=== PATIENT | male | born 1960 | race Caucasian/White ===

== ENCOUNTER 2016-06-20 09:05 | Emergency (ER) | payer BC, OTHER ==
[2016-06-20 09:21] VITALS: BP 128/88; PULSE 80; TEMP 97.8; BMI 38.0
--- NOTE | 2016-06-20 09:22 | PDOC ---
History of Present Illness - General Chief Complaint: Respiratory Stated Complaint: FLU Time Seen by Provider: 06/20/16 09:16 History Source: Patient Exam Limitations: No Limitations - History of Present Illness Initial Comments: 56 yo M history paroxysmal afib presents with flu-like symptoms x5 day. He states that it started with frontal headache, fever with Tmax 102, body aches, nausea. He vomited this morning. Has had very little PO intake due to poor appetite x1 day. He states that he developed a rash on his back approximately 5 days ago. The rash is on the left side of his mid-back, no rash on the right side. He is uncertain if he received flu shot this year. He had chicken pox in the past. Past History - Past Medical History Allergies/Adverse Reactions: Allergies Allergy/AdvReac Type Severity Reaction Status Date / Time No Known Allergies Allergy Verified 06/20/16 09:14 Home Medications: Ambulatory Orders Valsartan 40 mg PO DAILY 11/15/14 Aspirin [ASA -] 81 mg PO DAILY tab.chew 11/23/14 Diltiazem Cd [Cardizem Cd -] 120 mg PO DAILY #30 cap.cd.24h 11/23/14 Ondansetron [Zofran -] 4 mg PO TID PRN #21 tablet 06/20/16 Anemia: No Asthma: Yes (CHILDHOOD) Cancer: No Cardiac Disorders: Yes (ONE EPISODE OF A-FIB NOVEMBER 2010) CVA: No COPD: No CHF: No Dementia: No Diabetes: No GI Disorders: No Disorders: No HTN: Yes Hypercholesterolemia: Yes Liver Disease: No Seizures: No Thyroid Disease: No - Surgical History Abdominal Surgery: No Appendectomy: No Cardiac Surgery: No Cholecystectomy: Yes (2008) Lung Surgery: No Neurologic Surgery: No Orthopedic Surgery: No - Psycho/Social/Smoking Cessation Hx Anxiety: No Suicidal Ideation: No Smoking History: Former smoker Have you smoked in the past 12 months: No Number of Cigarettes Smoked Daily: 0 Information on smoking cessation initiated: No 'Breaking Loose' booklet given: 11/15/14 Hx Alcohol Use: No Drug/Substance Use Hx: No Substance Use Type: None Hx Substance Use Treatment: No Review of Systems - Review of Systems Able to Perform ROS?: Yes Comments:: GENERAL/CONSTITUTIONAL: +Fever, chills, malaise, weakness. HEAD, EYES, EARS, NOSE AND THROAT: No change in vision. No ear pain or discharge. No sore throat. CARDIOVASCULAR: No chest pain or shortness of breath. RESPIRATORY: No cough, wheezing, or hemoptysis. GASTROINTESTINAL: +Nausea, vomiting. No diarrhea or constipation. GENITOURINARY: No dysuria, frequency, or change in urination. MUSCULOSKELETAL: No joint or muscle swelling or pain. No neck or back pain. SKIN: No rash NEUROLOGIC: +Headache. No vertigo, loss of consciousness, or change in strength/ sensation. ENDOCRINE: No increased thirst. No abnormal weight change. HEMATOLOGIC/LYMPHATIC: No anemia, easy bleeding, or history of blood clots. ALLERGIC/IMMUNOLOGIC: No hives or skin allergy. *Physical Exam - Vital Signs Last Vital Signs Temp Pulse Resp BP Pulse Ox 97.8 F 80 15 128/88 99 06/20/16 09:13 06/20/16 09:13 06/20/16 09:13 06/20/16 09:13 06/20/16 09:13 - Physical Exam Comments: GENERAL: Awake, alert, and fully oriented, in no acute distress. Appears ill but nontoxic. HEAD: No signs of trauma EYES: PERRLA, EOMI, sclera anicteric, conjunctiva clear ENT: Auricles normal inspection, hearing grossly normal, nares patent, oropharynx clear without exudates. Dry mucosa NECK: Normal ROM, supple, no lymphadenopathy, JVD, or masses LUNGS: Breath sounds equal, clear to auscultation bilaterally. No wheezes, and no crackles HEART: Regular rate and rhythm, normal S1 and S2, no murmurs, rubs or gallops ABDOMEN: Soft, nontender, normoactive bowel sounds. No guarding, no rebound. No masses EXTREMITIES: Normal range of motion, no edema. No clubbing or cyanosis. No cords, erythema, or tenderness NEUROLOGICAL: Cranial nerves II through XII grossly intact. Normal speech, normal gait SKIN: Warm, Dry, normal turgor. +Vesicular rash on an erythematous base to L mid -back in a dermatomal distribution. ED Treatment Course - LABORATORY CBC & Chemistry Diagram: 06/20/16 10:15 06/20/16 10:15 Medical Decision Making - Medical Decision Making Pt improved with IV fluids and IV tylenol. Rash is consistent with zoster, however, the duration of symptoms is such that it is too late to treat with antivirals at this point. Will treat symptomatically. Counseled him that women and unvaccinated children should not come into contact with the rash. Stable for DC home. *DC/Admit/Observation/Transfer Diagnosis at time of Disposition: Shingles Qualifiers: Herpes zoster complications: without complications Qualified Code(s): B02.9 - Zoster without complications - Discharge Dispostion Disposition: HOME Condition at time of disposition: Good Admit: No - Referrals Referrals: Yogesh Crespo MD [Primary Care Provider] - - Patient Instructions Printed Discharge Instructions: DI for Shingles
[2016-06-20] MEDS ORDERED: ONDANSETRON 4 MG/2 ML VIAL IVPUSH ONE (09:48)
[2016-06-20] MEDS ORDERED: SODIUM CHLORIDE 1,000 ML IV STA (09:48)
[2016-06-20] MEDS ORDERED: ACETAMINOPHEN 1000 MG/100 ML VIAL (NON FORMULARY) IVPB ONE (09:48)
[2016-06-20] MEDS ORDERED: ONDANSETRON 4 MG/2 ML VIAL ONE (09:55)
[2016-06-20] MEDS ORDERED: ACETAMINOPHEN INJECTION 100 ML IVPB ONE (09:56)
[2016-06-20 10:26] LABS: BASOPHIL 0.4 % (0-2.0); EOSINOPHIL 0.8 % (0-4.5); MCH 27.4 pg (25.7-33.7); MCHC 32.9 g/dl (32.0-35.9); MEAN CELL VOLUME 83.2 fl (80-96); MEAN PLT VOLUME 8.3 fl (7.5-11.1); NEUTROPHILS 72.5 % (42.8-82.8); PLATELET COUNT 276 K/MM3 (134-434); RDW 12.3 % (11.9-15.9); WHITE BLOOD COUNT 11.4 K/mm3 (4.0-10.0)
[2016-06-20 10:47] LABS: ALBUMIN 4.1 g/dl (3.5-5.0); ALK PHOS 93 U/L (32-92); ANION GAP 11 (8-16); BILIRUBIN,TOTAL 1.4 mg/dl (0.2-1.0); CALCIUM 9.2 mg/dl (8.4-10.2); CO2 20 mmol/L (22-28); CREATININE 0.7 mg/dl (0.6-1.3); SGOT/AST 32 U/L (10-42); SGPT/ALT 25 U/L (10-40); TOT PROT 7.3 g/dl (6.4-8.3)
[2016-06-20 10:49] LABS: PH,URINE 5.5 (4.5-8); URINE BILIRUBIN 1+ (NEGATIVE); URINE GLUCOSE (UA) 3+ (NEGATIVE); URINE KETONE 2+ (NEGATIVE); URINE LEUK ESTERASE Negative (NEGATIVE); URINE NITRITE Negative (NEGATIVE); URINE UROBILINOGEN 0.2 E.U/dl (0.2-1.0)
[2016-06-20 10:50] LABS: URINE COLOR YELLOW; URINE PROTEIN 1+ (NEGATIVE)
[2016-06-20 10:50] LABS: GLUCOSE,RANDOM 330 mg/dl (74-106)
[2016-06-20 10:51] LABS: URINE APPEARANCE CLOUDY; URINE BLOOD TRACE (NEGATIVE)
[2016-06-20 11:32] LABS: URINE RBC 0-3 /hpf (0-3); URINE WBC 0-3 (3-5)
[2016-06-20 11:33] LABS: URINE BACTERIA FEW /hpf (NEGATIVE)
== END 2016-06-20 13:25 | disposition home or self-care (01) ==
LOC: FER 09:05
PROC: 3E033NZ Introduction of Analgesics, Hypnotics, Sedatives into Peripheral Vein, Percutaneous Approach (ICD-10-PCS; principal; 2016-06-20)
PROC: 3E033GC Introduction of Other Therapeutic Substance into Peripheral Vein, Percutaneous Approach (ICD-10-PCS; 2016-06-20)
PROC: 3E0337Z Introduction of Electrolytic and Water Balance Substance into Peripheral Vein, Percutaneous Approach (ICD-10-PCS; 2016-06-20)
DX: B02.9 Zoster without complications (principal); Z87.891 Personal history of nicotine dependence; I48.91 Unspecified atrial fibrillation; Z79.82 Long term (current) use of aspirin; I10 Essential (primary) hypertension; E78.00 Pure hypercholesterolemia, unspecified
CPT/HCPCS: 36415; 71010-TC; 80053; 81003; 81015; 83605; 85025; 87804; 99284-25

== ENCOUNTER 2016-09-07 00:20 | Inpatient (IN) | payer BC, OTHER ==
[2016-09-07 00:31] VITALS: BMI 37.7
--- NOTE | 2016-09-07 00:31 | PDOC ---
History of Present Illness <Luana Garcia - Last Filed: 09/07/16 02:06> <Janae Ellis - Last Filed: 09/07/16 02:25> <Anshul Hwang - Last Filed: 09/07/16 02:32> - General Chief Complaint: Palpitations Stated Complaint: IRREGULAR HEART BEAT Time Seen by Provider: 09/07/16 00:28 - History of Present Illness Initial Comments: 09/07/16 00:56 Patient is a 56 year old male with significant medical hx of HTN, HLD, and paroxysmal AFIB who is presenting to the ED with palpitations since this evening. The patient was lying down on his side reading when he began experiencing heart palpitations. He denies any exertional activity. The patient has had an episode of AFib in the past (November 2010) and he states that this feels similar to that event. Denies chest pain, shortness of breath, nausea, vomiting, diarrhea, and melena. Cone Picker: Yogesh Crespo MD (Luana Garcia) Past History <Luana Garcia - Last Filed: 09/07/16 02:06> <Janae Ellis - Last Filed: 09/07/16 02:25> - Past Medical History Anemia: No Asthma: Yes (CHILDHOOD) Cancer: No Cardiac Disorders: Yes (ONE EPISODE OF A-FIB NOVEMBER 2010) CVA: No COPD: No CHF: No Dementia: No Diabetes: No GI Disorders: No Disorders: No HTN: Yes Hypercholesterolemia: Yes Liver Disease: No Seizures: No Thyroid Disease: No - Surgical History Abdominal Surgery: No Appendectomy: No Cardiac Surgery: No Cholecystectomy: Yes (2008) Lung Surgery: No Neurologic Surgery: No Orthopedic Surgery: No - Psycho/Social/Smoking Cessation Hx Anxiety: No Suicidal Ideation: No Smoking History: Former smoker Have you smoked in the past 12 months: No Number of Cigarettes Smoked Daily: 0 If you are a former smoker, when did you quit?: 3 months ago Information on smoking cessation initiated: No 'Breaking Loose' booklet given: 11/15/14 Hx Alcohol Use: No Drug/Substance Use Hx: No Substance Use Type: None Hx Substance Use Treatment: No <Anshul Hwang - Last Filed: 09/07/16 02:32> - Past Medical History Allergies/Adverse Reactions: Allergies Allergy/AdvReac Type Severity Reaction Status Date / Time No Known Allergies Allergy Verified 09/07/16 00:29 Home Medications: Ambulatory Orders Valsartan 40 mg PO DAILY 11/15/14 Diltiazem Cd [Cardizem Cd -] 120 mg PO DAILY #30 cap.cd.24h 11/23/14 Aspirin Coated [Ecotrin -] 325 mg PO DAILY 09/07/16 Cardiac Specific PMH - Complaint Specific PMHX Pacemaker: No <Anshul Hwang - Last Filed: 09/07/16 02:32> Review of Systems <Luana Garcia - Last Filed: 09/07/16 02:06> <Janae Ellis - Last Filed: 09/07/16 02:25> <Anshul Hwang - Last Filed: 09/07/16 02:32> - Review of Systems Comments:: 09/07/16 00:56 CONSTITUTIONAL: No fever, no chills, no fatigue EYES: No visual changes ENT: No ear pain, no sore throat CARDIOVASCULAR: Palpitations. No chest pain RESPIRATORY: No cough, no SOB GI: No abdominal pain, no nausea, no vomiting, no constipation, no diarrhea GENITOURINARY: No dysuria, no frequency, no hematuria MUSKULOSKELETAL: No backpain, no joint pain, no myalgias SKIN: No rash NEURO: No headache (Luana Garcia) *Physical Exam <Luana Garcia - Last Filed: 09/07/16 02:06> <Janae Ellis - Last Filed: 09/07/16 02:25> <Anshul Hwang - Last Filed: 09/07/16 02:32> - Vital Signs Last Vital Signs Temp Pulse Resp BP Pulse Ox 97.6 F 107 H 20 133/80 99 09/07/16 00:29 09/07/16 00:52 09/07/16 00:52 09/07/16 01:34 09/07/16 00:52 - Physical Exam Comments: 09/07/16 00:57 CONSTITUTIONAL: Morbidly obese; anxious appearing HEAD: Normocephalic; atraumatic EYES: PERRL; EOM intact ENMT: External appears normal; normal oropharynx NECK: Supple; non-tender; no cervical lymphadenopathy CARD: Irregularly irregular; Normal S1, S2; no murmurs, rubs, or gallops RESP: Normal chest excursion with respiration; breath sounds clear and equal bilaterally; no wheezes, rhonchi, or rales ABD: Soft, non-distended; non-tender; no palpable organomegaly, no palpable hernias EXT: Normal ROM in all four extremities; non-tender to palpation; distal pulses intact SKIN: Warm, dry, no rash NEURO: No focal neurological deficiencies. (Luana Garcia) Heart Score/ECG Review <Luana Garcia - Last Filed: 09/07/16 02:06> <Janae Ellis - Last Filed: 09/07/16 02:25> <Anshul Hwang - Last Filed: 09/07/16 02:32> #1 09/07/16 01:45 Atrial fibrillation with rapid ventricular response with premature ventricular or aberrantly conducted complexes Nonspecific ST abnormality Abnormal ECG (Luana Garcia) ED Treatment Course - LABORATORY CBC & Chemistry Diagram: 09/07/16 00:39 09/07/16 00:39 <Luana Garcia - Last Filed: 09/07/16 02:06> - LABORATORY CBC & Chemistry Diagram: 09/07/16 00:39 09/07/16 00:39 <Janae Ellis - Last Filed: 09/07/16 02:25> - LABORATORY CBC & Chemistry Diagram: 09/07/16 00:39 09/07/16 00:39 <Anshul Hwang - Last Filed: 09/07/16 02:32> - ADDITIONAL ORDERS Additional order review: Laboratory Results 09/07/16 09/07/16 00:39 00:39 INR 0.88 Sodium 135 L Potassium 3.8 Chloride 98 Carbon Dioxide 22 Anion Gap 15 BUN 17 D Creatinine 0.9 D Creat Clearance w eGFR > 60 Random Glucose 371 H* D Calcium 8.6 Total Bilirubin 0.3 AST 22 D ALT 34 Alkaline Phosphatase 211 H D Creatine Kinase 102 Troponin I < 0.02 Total Protein 7.0 Albumin 3.7 09/07/16 00:39 RBC 5.55 MCV 82.9 MCHC 34.6 RDW 13.3 MPV 9.0 Neutrophils % 50.1 D Lymphocytes % 41.4 H D Monocytes % 6.1 Eosinophils % 1.4 D Basophils % 1.0 D - RADIOLOGY Radiology Studies Ordered: Category Date Time Status CHEST X-RAY PORTABLE* [RAD] Stat Radiology 09/07/16 01:36 Taken - Medications Given in the ED: ED Medications Discontinued Medications Generic Name Dose Route Start Last Admin Trade Name Leeroy PRN Reason Stop Dose Admin Diltiazem HCl 30 mg 09/07/16 00:44 09/07/16 00:52 Cardizem Injection - IVPUSH 09/07/16 00:45 30 mg ONCE ONE Administration Diltiazem HCl 30 mg 09/07/16 01:25 09/07/16 01:35 Cardizem - PO 09/07/16 01:26 30 mg ONCE ONE Administration Diltiazem HCl 25 mg 09/07/16 01:25 09/07/16 01:35 Cardizem Injection - IVPUSH 09/07/16 01:26 25 mg ONCE ONE Administration Sodium Chloride 500 mls @ 500 mls/hr 09/07/16 01:26 09/07/16 01:34 Normal Saline - IV 09/07/16 02:25 500 mls/hr ASDIR STA Administration Insulin Human Regular 4 units 09/07/16 01:59 09/07/16 02:13 Novolin R Vial *For Ivpush Or Iv Drip Only* SQ 09/07/16 02:00 4 units ONCE ONE Administration Lorazepam 1 mg 09/07/16 00:44 09/07/16 00:52 Ativan - PO 09/07/16 00:45 1 mg ONCE ONE Administration Medical Decision Making <Luana Garcia - Last Filed: 09/07/16 02:06> <Janae Ellis - Last Filed: 09/07/16 02:25> <Anshul Hwang - Last Filed: 09/07/16 02:32> - Medical Decision Making 09/07/16 02:[address] Miles Meza covering for Dr. Yogesh Crespo (via answering service) at 2:01 Awaiting call back 09/07/16 02:26 Second call placed for Dr. Meza (via answering service) at 2:26 Awaiting call back (Janae Ellis) 09/07/16 02:12 Patient is morbidly obese 56-year-old male with history of hypertension, paroxysmal atrial fibrillation and anxiety who presents with history of ablation with rapid ventricular response. In the ER, patient is noted to be tachycardic with EKG revealing atrial fibrillation with a heart rate of 137 with nonspecific T-wave abnormalities likely related to the underlying rhythm. Patient denies chest pain or shortness of breath. On arrival, patient had received Cardizem-30 mg IV push over 2 minutes followed by additional Cardizem- 25 mg IV push and 30 mg of oral Cardizem patient had also received Ativan-1 mg by mouth for anxiety. On reassessment, blood pressure is noted to be 113/75; heart rate varies between 90 12/16/2010. Patient is otherwise asymptomatic. CBC is within normal limit. CMP reveals elevated blood sugar and minimally elevated anion gap. I will obtain an acetone level, although DKA is highly unlikely. We' ll administer 4 units of subcutaneous insolent. Will hydrate. We'll consider anticoagulation since patient's chads 2 vascular score is noted to be 2 will discuss with cardiology. Will admit. (Anshul Hwang) *DC/Admit/Observation/Transfer <Luana Garcia - Last Filed: 09/07/16 02:06> <Janae Ellis - Last Filed: 09/07/16 02:25> - Discharge Dispostion Admit: Yes <Anshul Hwang - Last Filed: 09/07/16 02:32> Diagnosis at time of Disposition: Atrial fibrillation with rapid ventricular response, Hyperglycemia - Discharge Dispostion Condition at time of disposition: Fair - Attestations Scribe Attestion: 09/07/16 00:58 Documentation prepared by Luana Garcia, acting as medical billing representative for Anshul Hwang MD. (Luana Garcia)
[2016-09-07] MEDS ORDERED: dilTIAZem HCL 125 MG/25 ML - 25 ML VIAL ONE ×4 (00:38→02:28)
[2016-09-07] MEDS ORDERED: LORazepam 1 MG TABLET PO ONE (00:44)
[2016-09-07] MEDS ORDERED: dilTIAZem HCL 50 MG/10 ML - 10 ML VIAL IVPUSH ONE ×3 (00:44→02:20)
[2016-09-07] MEDS ORDERED: LORazepam 0.5 MG TABLET ONE ×2 (00:46→00:49)
[2016-09-07 00:55] LABS: EOSINOPHIL 1.4 % (0-4.5); MCH 28.7 pg (25.7-33.7); MCHC 34.6 g/dl (32.0-35.9); MEAN CELL VOLUME 82.9 fl (80-96); NEUTROPHILS 50.1 % (42.8-82.8); PLATELET COUNT 243 K/MM3 (134-434); RDW 13.3 % (11.9-15.9); WHITE BLOOD COUNT 12.9 K/mm3 (4.0-10.0)
[2016-09-07 01:08] LABS: INR 0.88 (0.82-1.09); PROTHROMBIN TIME (PATIENT) 9.7 SEC (9.98-11.88)
[2016-09-07 01:18] LABS: ALBUMIN 3.7 g/dl (3.4-5.0); ANION GAP 15 (8-16); BILIRUBIN,TOTAL 0.3 mg/dL (0.2-1.0); CALCIUM 8.6 mg/dL (8.5-10.1); CO2 22 mmol/L (21-32); CREATININE 0.9 mg/dL (0.7-1.3); SGPT/ALT 34 U/L (12-78)
[2016-09-07 01:21] LABS: ALK PHOS 211 U/L (45-117); TROPONIN I < 0.02 ng/ml (0.00-0.05)
[2016-09-07 01:25] LABS: GLUCOSE,RANDOM 371 mg/dL (74-106); SGOT/AST 22 U/L (15-37)
[2016-09-07] MEDS ORDERED: dilTIAZem HCL 30 MG TABLET (FP) PO ONE (01:25)
[2016-09-07] MEDS ORDERED: SODIUM CHLORIDE 500 ML IV STA (01:26)
[2016-09-07] MEDS ORDERED: dilTIAZem HCL 30 MG TABLET (FP) ONE (01:27)
[2016-09-07] MEDS ORDERED: INSULIN REGULAR HUMAN 100 UNITS/ML *VIAL SQ ONE (01:59)
[2016-09-07] MEDS ORDERED: INSULIN NPH 100 UNITS/ML *VIAL ONE (02:10)
[2016-09-07] MEDS ORDERED: ENOXAPARIN NA (PORCINE) 40 MG/0.4 ML DISP.SYRIN SQ ONE (02:27)
[2016-09-07] MEDS ORDERED: ENOXAPARIN NA (PORCINE) 80 MG/0.8 ML DISP.SYRIN SQ ONE (02:28)
[2016-09-07] MEDS ORDERED: ENOXAPARIN NA (PORCINE) 120 MG/0.8 ML DISP.SYRIN SQ SCH (02:30)
--- NOTE | 2016-09-07 02:48 | PN ---
<Margoth Thornton - Last Filed: 09/07/16 02:47> Teaching Attending Note Name of Resident: Natalia Ridere <Dang Sutherland - Last Filed: 09/07/16 05:18> Teaching Attending Note ATTENDING PHYSICIAN STATEMENT I saw and evaluated the patient. I reviewed the resident's note and discussed the case with the resident. I agree with the resident's findings and plan as documented. SUBJECTIVE: 56 yo M presents with palpitations for 1 day. Patient states he was lying down at rest when the palpitations began. Patient reports experiencing AFIB 8 years prior and notes his symptoms tonight felt similar to his previous episode. Patient reports drinking decaffeinated coffee throughout this week as well as eating a piece of dark chocolate five minutes prior to the onset of AFIB. Patient states he typically works out 4-5 times a week. Denies N/V/D, dizziness and LOC. Patient reports his last Echo was in December,. PMHx: HTN, HLD, and paroxysmal AFIB OBJECTIVE: Last Vital Signs Temp Pulse Resp BP Pulse Ox 97.6 F 95 H 19 120/73 97 09/07/16 00:29 09/07/16 03:59 09/07/16 03:59 09/07/16 03:59 09/07/16 03:59 GENERAL: Morbidly obese. Awake, alert, and fully oriented, in no acute distress HEENT: Atraumatic. PERRLA, EOMI. Moist mucosa. No JVD LUNGS: No distress, speaks full sentences, clear to auscultation bilaterally HEART: Irregular rate and regular rhythm, normal S1 and S2, no murmurs, rubs or gallops, peripheral pulses normal and equal bilaterally. ABDOMEN: Soft, nontender, normoactive bowel sounds. No guarding, no rebound. No masses EXTREMITIES: Normal inspection, Normal range of motion, no edema. No clubbing or cyanosis. NEUROLOGICAL: Cranial nerves II through XII grossly intact. Normal speech, normal gait, no focal sensorimotor deficits SKIN: Warm, Dry, normal turgor, no rashes or lesions noted. CBCD WBC 12.9 K/mm3 (4.0-10.0) H D 09/07/16 00:39 RBC 5.55 M/mm3 (4.00-5.60) 09/07/16 00:39 Hgb 15.9 GM/dL (11.7-16.9) 09/07/16 00:39 Hct 46.0 % (35.4-49) 09/07/16 00:39 MCV 82.9 fl (80-96) 03 00:39 MCHC 34.6 g/dl (32.0-35.9) 09/07/16 00:39 RDW 13.3 % (11.9-15.9) 09/07/16 00:39 Plt Count 243 K/MM3 (134-434) 09/07/16 00:39 MPV 9.0 fl (7.5-11.1) 09/07/16 00:39 CMP Sodium 135 mmol/L (136-145) L 09/07/16 00:39 Potassium 3.8 mmol/L (3.5-5.1) 09/07/16 00:39 Chloride 98 mmol/L (98-107) 09/07/16 00:39 Carbon Dioxide 22 mmol/L (21-32) 09/07/16 00:39 Anion Gap 15 (8-16) 09/07/16 00:39 BUN 17 mg/dL (7-18) D 09/07/16 00:39 Creatinine 0.9 mg/dL (0.7-1.3) D 09/07/16 00:39 Creat Clearance w eGFR > 60 (>60) 09/07/16 00:39 Calcium 8.6 mg/dL (8.5-10.1) 09/07/16 00:39 Total Bilirubin 0.3 mg/dL (0.2-1.0) 09/07/16 00:39 AST 22 U/L (15-37) D 09/07/16 00:39 ALT 34 U/L (12-78) 09/07/16 00:39 Alkaline Phosphatase 211 U/L (45-117) H D 09/07/16 00:39 Total Protein 7.0 g/dl (6.4-8.2) 09/07/16 00:39 Albumin 3.7 g/dl (3.4-5.0) 03 00:39 ASSESSMENT AND PLAN: 1.) Paroxysmal AFIB - Chadvasc 2 - Anticoags as per cardio - Lovenox Q12 120 mg given in ED - 81 mg aspirin - Get lipid panel - Hemoglobin A!C - Echo in am - Cardiology consult in AM. Dr. Rodriguez - Follow up trope - Continue home meds, Cardizem 120 mg 2.)Hyperglycemia possible diabetes -insulin sliding scale -Fingersticks -Admit to tele Documentation prepared by Dang Sutherland, acting as medical transcription supervisor for Margoth Thornton M.D.
--- NOTE | 2016-09-07 03:00 | HP ---
CHIEF COMPLAINT: Palpitations PCP: No PCP Dr. Crespo ([facility]) HISTORY OF PRESENT ILLNESS: Patient is a 56 year old male presented with the chief complaints of palpitations. According to the patient, he was reading something after a heavy meal and a chocolate, when he started having palpitations at around 11:30pm yesterday evening. He felt his heart rate would slow down and would get faster. Patient started getting nervous, anxious and called 911 immediately. He had similar episode 8 years ago but after 30 hours, he returned to sinus. Since then he has been on Aspirin and Cardizem 120 [address] Patient saw Dr. Crespo last January, had detailed cardio workup done and everything was normal. Denies chest pain, sob, cough, headache, dizziness, loc, tingling, numbness, abdominal pain, nausea and vomiting. Patient mentions that he has had multiple shoulder surgery and the last one he had was in 2014, was told his HbA1c in 6.5. Since then he started exercising, eating healthy and came down from 335lbs--> 270lbs in over a year. But never had repeat HbA1c again and doesn't know if he has Diabetes Mellitus ER course was notable for: (1) Afebrile, HR-max 137 bpm, leukocytosis (12.9); RBS-371 (2) EKGs-Atrial fibrillation with rapid ventricular response with premature ventricular or aberrantly conducted complexes, Nonspecific ST abnormality (3) Cardizem 30mg IV push; Cardizem 25mg IV, cardizem 30mg PO; , Cardizem 25mg IV, Ativan 1mg, Enoxaparin 120mg sq, 4 Units Recent Travel: None PAST MEDICAL HISTORY: Paroxsysmal Atrial fibrillation( dx 8 yrs ago), Hypertension, Hyperlipidemia, s/p Cholecystectomy, Left knee replacement, Shoulder surgeries PAST SURGICAL HISTORY: As mentioned above Social History: Smoking: Quit 3months ago, used to smoke occasionally 3-4 times/week Alcohol: Occasional Drugs: Denies Family History: Unknown 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 Allergies No Known Allergies Allergy (Verified 09/07/16 00:29) HOME MEDICATIONS: Home Medications Medication Instructions Recorded Valsartan 40 mg PO DAILY 11/15/14 Diltiazem Cd [Cardizem Cd -] 120 mg PO DAILY #30 cap.cd.24h 11/23/14 Aspirin Coated [Ecotrin -] 325 mg PO DAILY 09/07/16 REVIEW OF SYSTEMS CONSTITUTIONAL: Absent: fever, chills, diaphoresis, generalized weakness, malaise, loss of appetite, weight change HEENT: Absent: rhinorrhea, nasal congestion, throat pain, throat swelling, difficulty swallowing, mouth swelling, ear pain, eye pain, visual changes CARDIOVASCULAR: Present: Palpitations Absent: chest pain, syncope, lightheadedness, peripheral edema RESPIRATORY: Absent: cough, shortness of breath, dyspnea with exertion, orthopnea, wheezing, stridor, hemoptysis GASTROINTESTINAL: Absent: abdominal pain, abdominal distension, nausea, vomiting, diarrhea, constipation, melena, hematochezia GENITOURINARY: Absent: dysuria, frequency, urgency, hesitancy, hematuria, flank pain, genital pain MUSCULOSKELETAL: Absent: myalgia, arthralgia, joint swelling, back pain, neck pain SKIN: Absent: rash, itching, pallor HEMATOLOGIC/IMMUNOLOGIC: Absent: easy bleeding, easy bruising, lymphadenopathy, frequent infections ENDOCRINE: Absent: unexplained weight gain, unexplained weight loss, heat intolerance, cold intolerance NEUROLOGIC: Absent: headache, focal weakness or paresthesias, dizziness, unsteady gait, seizure, mental status changes, bladder or bowel incontinence PSYCHIATRIC: Absent: anxiety, depression, suicidal or homicidal ideation, hallucinations. PHYSICAL EXAMINATION Vital Signs - 24 hr 09/07/16 09/07/16 09/07/16 00:29 00:52 01:34 Temperature 97.6 F Pulse Rate 122 H Pulse Rate [ 107 H Left Radial] Respiratory 20 20 Rate Blood Pressure 157/106 133/80 Blood Pressure 116/62 [Left Arm] O2 Sat by Pulse 99 99 Oximetry (%) 09/07/16 02:34 Temperature Pulse Rate Pulse Rate [ 117 H Left Radial] Respiratory 16 Rate Blood Pressure Blood Pressure 106/65 [Left Arm] O2 Sat by Pulse 100 Oximetry (%) GENERAL: Morbidly obese patient, Awake, alert, and fully oriented, in no acute distress. HEAD: Normal with no signs of trauma. EYES: EOM intact, no pallor or icterus. EARS, NOSE, THROAT: Ears normal. Moist mucous membranes. NECK:Supple LUNGS: Breath sounds equal, clear to auscultation bilaterally. No wheezes, and no crackles. No accessory muscle use. HEART: Irregularly irregular rhythm, normal S1 and S2 without murmur. ABDOMEN: Soft, nontender, not distended, normoactive bowel sounds, no guarding, no rebound, no masses. No hepatomegaly or splenomegaly. MUSCULOSKELETAL: Normal range of motion at all joints. No bony deformities or tenderness. No CVA tenderness. UPPER EXTREMITIES: 2+ pulses, warm, well-perfused. No cyanosis. No clubbing. No peripheral edema. LOWER EXTREMITIES: 2+ pulses, warm, well-perfused. No calf tenderness. No peripheral edema. NEUROLOGICAL: Cranial nerves II-XII intact. Normal speech. Normal gait. PSYCHIATRIC: Cooperative. Good eye contact. Appropriate mood and affect. SKIN: Warm, dry, normal turgor, no rashes or lesions noted, normal capillary refill. Laboratory Results - last 24 hr 09/07/16 09/07/16 09/07/16 00:39 00:39 00:39 WBC 12.9 H D RBC 5.55 Hgb 15.9 Hct 46.0 MCV 82.9 MCHC 34.6 RDW 13.3 Plt Count 243 MPV 9.0 Neutrophils % 50.1 D Lymphocytes % 41.4 H D Monocytes % 6.1 Eosinophils % 1.4 D Basophils % 1.0 D INR 0.88 Sodium 135 L Potassium 3.8 Chloride 98 Carbon Dioxide 22 Anion Gap 15 BUN 17 D Creatinine 0.9 D Creat Clearance w eGFR > 60 Random Glucose 371 H* D Calcium 8.6 Total Bilirubin 0.3 AST 22 D ALT 34 Alkaline Phosphatase 211 H D Creatine Kinase 102 Troponin I < 0.02 Total Protein 7.0 Albumin 3.7 TSH 09/07/16 00:52 WBC RBC Hgb Hct MCV MCHC RDW Plt Count MPV Neutrophils % Lymphocytes % Monocytes % Eosinophils % Basophils % INR Sodium Potassium Chloride Carbon Dioxide Anion Gap BUN Creatinine Creat Clearance w eGFR Random Glucose Calcium Total Bilirubin AST ALT Alkaline Phosphatase Creatine Kinase Troponin I Total Protein Albumin TSH 2.48 ASSESSMENT/PLAN: Patient is a 56 year old male with significant past medical history of Paroxsysmal Atrial fibrillation( dx 8 yrs ago), Hypertension, Hyperlipidemia, s/ p Cholecystectomy, Left knee replacement, Shoulder surgeries presented with the chief complaints of palpitations. # Paroxsysmal Atrial Fibrillation CHADVASC score-2 Patient presented with palpitations On arrival, he was afebrile, HR-max 137 bpm, leukocytosis (12.9); RBS-371 EKG showed-Atrial fibrillation with rapid ventricular response with premature ventricular or aberrantly conducted complexes, Nonspecific ST abnormality Patient received Cardizem 30mg IV push; Cardizem 25mg IV, cardizem 30mg PO; , Cardizem 25mg IV, Ativan 1mg, Enoxaparin 120mg sq, 4 Units Admitted in Telemetry Troponin x 1 negative------> pending at 6am Continuous cardiac monitoring Cardiology consult placed Resumed Dilitazem 120mg Daily from tomorrow since patient received 110mg of Diltiazem in the ED today.Anticoagulation as per Cardiology Continue 81mg Aspirin Daily Echo # Palpitations-rule out Pulmonary Embolism Wells score-1.5 If he develops palpitations and sob, consider doing a CTA # Hyperglycemia-Possible Diabetes ZgD4p-5.5 in 2014 RBS 371 Anion gap normal Received Insulin 4 units in the ED HbA1c Pending Finger stick glucose monitoring Insulin sliding scale # Leukocytosis (12.9) Could be stress induced. UA pending-r/o UTI # Hyperlipidemia Not on any medications Awaiting lipid profile report # Hypertension Continue Valsartan 40mg daily # FEN IV fluids NS @ 83 mls/hr Electrolytes to be repeated tomorrow Cholesterol controlled Diabetic diet # Prophylaxis For DVT- Patient received 120mg of Lovenox today, will await for his skilled nursing anticoagulation by primary therapist, patient ambulating now, on Scds. For GI- Not Indicated # Code Status- Full Code # Dispo: Admitted in Telemetry. Duration of stay unknown. Illness, Investigation and Plan of care explained to the patient. He verbalized understanding. Case to be discussed with Dr. Thornton. Visit type - Emergency Visit Emergency Visit: Yes ED Registration Date: 09/07/16 Care time: The patient presented to the Emergency Department on the above date and was hospitalized for further evaluation of their emergent condition. - New Patient This patient is new to me today: Yes Date on this admission: 09/07/16 - Critical Care Critical Care patient: No
[2016-09-07] MEDS ORDERED: SODIUM CHLORIDE 500 ML IV ONE (03:14)
[2016-09-07] MEDS ORDERED: SODIUM CHLORIDE 1,000 ML IV SCH ×2 (04:15→05:22)
[2016-09-07] MEDS: INSULIN SLIDING SCALE (NOVOLOG) 1 VIAL SQ SCH ×4 (06:42→21:31)
[2016-09-07 07:44] LABS: BASOPHIL 0.4 % (0-2.0); EOSINOPHIL 1.9 % (0-4.5); MCH 28.5 pg (25.7-33.7); MCHC 34.6 g/dl (32.0-35.9); MEAN CELL VOLUME 82.5 fl (80-96); MEAN PLT VOLUME 9.4 fl (7.5-11.1); PLATELET COUNT 218 K/MM3 (134-434); RDW 13.4 % (11.9-15.9); WHITE BLOOD COUNT 10.8 K/mm3 (4.0-10.0)
[2016-09-07 08:34] LABS: ALBUMIN 3.3 g/dl (3.4-5.0); ANION GAP 10 (8-16); BILIRUBIN,TOTAL 0.2 mg/dL (0.2-1.0); CALCIUM 8.3 mg/dL (8.5-10.1); CHOLESTEROL 225 mg/dL (50-200); CO2 24 mmol/L (21-32); CREATININE 0.7 mg/dL (0.7-1.3); GLUCOSE,RANDOM 284 mg/dL (74-106); LDL CHOLESTEROL (ONLY SJRH) 147 mg/dL (5-100); PHOSPHOROUS 3.6 mg/dL (2.5-4.9); SGOT/AST 14 U/L (15-37); SGPT/ALT 27 U/L (12-78); TOT PROT 6.4 g/dl (6.4-8.2)
[2016-09-07 08:35] LABS: ALK PHOS 154 U/L (45-117); TROPONIN I < 0.02 ng/ml (0.00-0.05)
--- NOTE | 2016-09-07 08:59 | PN ---
Progress Note (short form) - Note Progress Note: Consult Dictated HTN Probable new onset DM Non-obstructive CAD Mildly dilated ascending aorta Recurrent AF REC: Add Toprol Start Eliquis 5mg BID, d/c ASA Echo Tele If rates controlled, can be discharged with outpatient f/u. Good chance he will convert to NSR on own. If doesn't we have discussed DCCV- which can be done either prior to d/c or scheduled soon after discharge.
[2016-09-07] MEDS: VALSARTAN 40 MG TABLET (FP) PO SCH (09:34)
[2016-09-07] MEDS: METOPROLOL SUCCINATE 25 MG TAB.SR.24H (FP) PO SCH ×2 (09:34→21:27)
[2016-09-07] MEDS ORDERED: ASPIRIN COATED 81 MG TABLET.EC PO SCH (10:00)
[2016-09-07] MEDS ORDERED: ASPIRIN 325 MG ENTERIC COATED TABLET (FP) PO SCH (10:00)
--- NOTE | 2016-09-07 12:00 | CONS ---
CARDIOLOGY CONSULTATION DATE OF CONSULTATION: 09/07/2016 REQUESTING PHYSICIAN: Radha Chapman MD The patient is my office patient who presents with recurrent atrial fibrillation. His past medical history consists of chronic hypertension, probable new-onset diabetes, mildly dilated ascending aorta, history of atrial fibrillation in 2008 , nonobstructive coronary disease, who developed palpitations around midnight last night. The patient recognized these as similar to his previous atrial fibrillation episode, presented to the ER, and was found to be in rapid atrial fibrillation at 137 beats per minute. He was given IV Cardizem and slowed to the low 100s. On telemetry, his average rates have been in the 100s with a few episodes into the 120s. He denies chest pain, shortness of breath. Denies recent viral illnesses. Denies recent air travel. Denies symptoms of CHF. PAST MEDICAL HISTORY: As outlined above. ALLERGIES: He has no known drug allergies. HOME MEDICATIONS: Included valsartan 40 mg daily, Cardizem CD 120 daily, and aspirin 325 daily. FAMILY HISTORY: Noncontributory. 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 No illegal drug use. PHYSICAL EXAMINATION: Vital Signs: Temperature 98 Fahrenheit; pulse 95, irregular; blood pressure 133 /72; saturation 97 on room air. HEENT: Anicteric. Heart: S1, S2, irregular. Chest: Clear. Abdomen: Obese, soft, nontender. Extremities: No edema. Chest x-ray showed no acute lung disease. LABORATORY DATA: White count 10.8, hematocrit 43.7, platelets 218. INR 0.88. Sodium 137, potassium 3.8, creatinine 0.7. LFTs were normal with mildly elevated alkaline phosphatase. CK and troponin negative x2. Triglycerides 348, nonfasting; cholesterol 225; LDL 147. TSH was normal, 2.48. Toxicology screen showed trace acetone. EKG from September 07 at 2 a.m. showed atrial fibrillation at 103 beats per minute with no acute ST or T changes. IMPRESSION: 1. Hypertension. 2. Probably new-onset diabetes. 3. Nonobstructive coronary artery disease. 4. Mildly dilated ascending aorta. 5. Recurrent atrial fibrillation. PLAN: 1. Telemetry. 2. Echocardiogram. 3. Start Toprol-XL 25 mg b.i.d. 4. Start Eliquis 5 mg b.i.d., discontinue aspirin. 5. There is a good chance the patient will revert to normal sinus rhythm on his own with the addition of beta blockade. If he does not, as long as rates are controlled, it would be acceptable for him to be discharged with close outpatient followup. We have discussed the option of DC cardioversion if he does not revert to sinus rhythm - this can be done either prior to discharge or soon after discharge scheduled as an outpatient. He also inquired about the possibility of an atrial fibrillation ablation, but I would start with cardioversion first and reserve ablation for refractory or recurrent PAF. Thank you for the consultation. NOEL HDEZ M.D. [id number] MTDJacob
--- NOTE | 2016-09-07 13:01 | PN ---
Physical Exam: SUBJECTIVE: Patient seen and examined Pt is awake alert and oriented with no s/s of distress no chest pain, no palpitation, no sob, no dizziness no orthopnea, no dyspnea on exertion OBJECTIVE: Vital Signs Period Temp Pulse Resp BP Sys/Chapa Pulse Ox Last 24 Hr 97.6 F-98 F 95-117 16-20 106-133/65-73 97-100 GENERAL: The patient is awake, alert, and fully oriented, in no acute distress. HEAD: Normal with no signs of trauma. ENT: Ears normal, nares patent, oropharynx clear without exudates, moist mucous membranes. NECK: Trachea midline, full range of motion, supple. LUNGS: Breath sounds equal, clear to auscultation bilaterally, no wheezes, no crackles, no accessory muscle use. HEART: irregular rate and rhythm, S1, S2 without murmur, rub or gallop. ABDOMEN: Soft, obese, nontender, nondistended, normoactive bowel sounds, no guarding, no rebound, no hepatosplenomegaly, no masses. EXTREMITIES: 2+ pulses, warm, well-perfused, no edema. NEUROLOGICAL: normal speech, gait not observed. PSYCH: Normal mood, normal affect. SKIN: Warm, dry, normal turgor, no rashes or lesions noted Laboratory Results - last 24 hr 09/07/16 09/07/16 09/07/16 05:35 05:35 05:35 WBC 10.8 H RBC 5.30 Hgb 15.1 Hct 43.7 MCV 82.5 MCHC 34.6 RDW 13.4 Plt Count 218 MPV 9.4 Neutrophils % 51.0 Lymphocytes % 41.3 H Monocytes % 5.4 Eosinophils % 1.9 Basophils % 0.4 Sodium 137 Potassium 3.8 Chloride 103 Carbon Dioxide 24 Anion Gap 10 BUN 16 Creatinine 0.7 D Creat Clearance w eGFR > 60 POC Glucometer Random Glucose 284 H D Hemoglobin A1c % 10.2 H Calcium 8.3 L Phosphorus 3.6 Magnesium 2.0 Total Bilirubin 0.2 D AST 14 L D ALT 27 D Alkaline Phosphatase 154 H D Creatine Kinase 83 Troponin I < 0.02 Total Protein 6.4 Albumin 3.3 L Triglycerides 348 H Cholesterol 225 H Total LDL Cholesterol 147 H HDL Cholesterol 41 09/07/16 09/07/16 06:40 11:03 WBC RBC Hgb Hct MCV MCHC RDW Plt Count MPV Neutrophils % Lymphocytes % Monocytes % Eosinophils % Basophils % Sodium Potassium Chloride Carbon Dioxide Anion Gap BUN Creatinine Creat Clearance w eGFR POC Glucometer 235 229 Random Glucose Hemoglobin A1c % Calcium Phosphorus Magnesium Total Bilirubin AST ALT Alkaline Phosphatase Creatine Kinase Troponin I Total Protein Albumin Triglycerides Cholesterol Total LDL Cholesterol HDL Cholesterol Active Medications Generic Name Dose Route Start Last Admin Trade Name Fabriceq PRN Reason Stop Dose Admin Apixaban 5 mg 09/07/16 18:00 Eliquis - PO BID ANNE Diltiazem HCl 120 mg 09/08/16 10:00 Cardizem Cd - PO DAILY ANNE Sodium Chloride 1,000 mls @ 83 mls/hr 09/07/16 05:22 09/07/16 09:34 Normal Saline - IV 83 mls/hr ASDIR ANNE Administration Insulin Aspart 1 vial 09/07/16 07:00 09/07/16 11:04 Novolog Vial Sliding Scale - SQ Not Given ACHS ANNE Protocol Metoprolol Succinate 25 mg 09/07/16 10:00 09/07/16 09:34 Toprol Xl - PO 25 mg BID ANNE Administration Valsartan 40 mg 09/07/16 10:00 09/07/16 09:34 Diovan - PO 40 mg DAILY ANNE Administration CBC, BMP 09/07/16 05:35 09/07/16 05:35 ASSESSMENT/PLAN: 56 year old male with pmh f Proximal afib from 8 years, htn, hpld presents to the ED with complaint of Palpiation. Pt was found to be in AFIB with RVR AFib with RVR in ED HR was 130's only reduced after cardizem IV and PO This am HR 100's ans remained less than 130 throughout the night Pt denies any symptoms overnight CHADSVAC score 3 Will start antcoasgulation apixibn 5mg po bid For better rate control Start Toprol XL 25mg PO BID Continue Cardizem 120mg PO Stop aspirin Trend troponins F/u Echo Type 2 diabetes BS 371 on admission and 235 this am Hga1c is 10.2 Novolog sliding scale Will start metformin 500 mg PO BID on discharge MAy need to add a second PO agent Nutrition consult Diabetes education Class 2 obesity BMI 37.7 Weight loss counseling Exercise program NUtrition consult HPLD LDL 147 HDL 41 LDL: goal is 70 Start atorvastin 20mg Po qhs HTN BP controlled Continue diovan FEN Fluid:NS at 83 ml/h Electrolytes: NO abnormalities Nutrition: Diabetic diet DVT prophylaxis: on eliquis Disposition: keep in telemetry pending echocardiogram result and waiting for HR to be controlled. Visit type - Emergency Visit Emergency Visit: Yes ED Registration Date: 09/07/16 Care time: The patient presented to the Emergency Department on the above date and was hospitalized for further evaluation of their emergent condition. - New Patient This patient is new to me today: Yes Date on this admission: 09/07/16 - Critical Care Critical Care patient: No - Discharge Referral Referred to [facility] Med [facility].C.: No
--- NOTE | 2016-09-07 14:58 | PN ---
Teaching Attending Note Name of Resident: James Han ATTENDING PHYSICIAN STATEMENT I saw and evaluated the patient. I reviewed the resident's note and discussed the case with the resident. I agree with the resident's findings and plan as documented. SUBJECTIVE:no repeated episodes of palpitations since last night. states he had similar symptoms 8 years ago when he was told he had afib but self converted. had stress test and echo done 7 months ago and reported as negative per patient. denies CP, SOB,fever, chills, blurred vision,, N/V/C/D OBJECTIVE: Last Vital Signs Temp Pulse Resp BP Pulse Ox 97.6 F 106 H 18 118/69 97 09/07/16 09:32 09/07/16 09:32 09/07/16 09:32 09/07/16 09:32 09/07/16 05:44 General NAD CV S1 S2 irregular, tachycardic no murmur Lungs CTA B/L no wheezing/rales/rhonchi ASSESSMENT AND PLAN: 56yo M with PMH PAF, HTN and DM presented to the ER and was admitted for further evaluation of their emergent condition 1. Afib with RVR- multiple cardizem IVP unable to control HR. initation of metoprolol this morning to improve HR. re-started on home dose of cardizem. [id number] >2. initiated on eliquis. risk and benefits of anticoagulation discussed with patient in detail. echo pending. cardio on board. TSH WNL, no sign of infection 2. New onset DM- A1c 10.1. diabetic teaching. fingerstick teaching by RN. counseled on importance of glucose control and sequelae of uncontrolled DM. will start on metformin on discharge. repeat A1c in 3 months 3. Obesity- BMI 37.7. counseld on importance of weight loss. lifestyle changes and excercise. goal to loose 1 lb/week 4. DVT ppx- eliquis
[2016-09-07 15:20] LABS: TROPONIN I < 0.02 ng/ml (0.00-0.05)
--- NOTE | 2016-09-07 17:05 | EKG ---
Test Reason : Blood Pressure : / mmHG Vent. Rate : 103 BPM Atrial Rate : 092 BPM P-R Int : 000 ms QRS Dur : 088 ms QT Int : 320 ms P-R-T Axes : 000 018 027 degrees QTc Int : 419 ms ATRIAL FIBRILLATION WITH RAPID VENTRICULAR RESPONSE ABNORMAL ECG WHEN COMPARED WITH ECG OF 07-SEP-2016 00:26, NO SIGNIFICANT CHANGE WAS FOUND Confirmed by PADMINI SEVERINO MD ([id number]) on 09/07/2016 5:05:19 PM Referred By: Confirmed By:PADMINI SEVERINO MD
--- NOTE | 2016-09-07 17:05 | EKG ---
Test Reason : Blood Pressure : / mmHG Vent. Rate : 137 BPM Atrial Rate : 174 BPM P-R Int : 000 ms QRS Dur : 088 ms QT Int : 320 ms P-R-T Axes : 000 034 059 degrees QTc Int : 483 ms ATRIAL FIBRILLATION WITH RAPID VENTRICULAR RESPONSE WITH PREMATURE VENTRICULAR OR ABERRANTLY CONDUCTED COMPLEXES NONSPECIFIC ST ABNORMALITY ABNORMAL ECG WHEN COMPARED WITH ECG OF 21-NOV-2014 10:04, ATRIAL FIBRILLATION HAS REPLACED SINUS RHYTHM VENT. RATE HAS INCREASED BY 76 BPM NON-SPECIFIC CHANGE IN ST SEGMENT IN INFERIOR LEADS ST NOW DEPRESSED IN ANTERIOR LEADS T WAVE INVERSION NO LONGER EVIDENT IN INFERIOR LEADS Confirmed by PADMINI SEVERINO MD ([id number]) on 09/07/2016 5:05:35 PM Referred By: Confirmed By:PADMINI SEVERINO MD
--- NOTE | 2016-09-07 17:06 | EKG ---
Test Reason : Blood Pressure : / mmHG Vent. Rate : 103 BPM Atrial Rate : 097 BPM P-R Int : 000 ms QRS Dur : 090 ms QT Int : 358 ms P-R-T Axes : 000 008 022 degrees QTc Int : 468 ms ATRIAL FIBRILLATION WITH RAPID VENTRICULAR RESPONSE ABNORMAL ECG WHEN COMPARED WITH ECG OF 07-SEP-2016 02:47, QT HAS LENGTHENED Confirmed by PADMINI SEVERINO MD ([id number]) on 09/07/2016 5:06:44 PM Referred By: SALVADOR MILLIGAN Confirmed By:PADMINI SEVERINO MD
[2016-09-07] MEDS: APIXABAN 5 MG TABLET PO SCH (17:45)
--- NOTE | 2016-09-07 20:37 | HOSP ---
Subjective - Review of Symptoms Events since last encounter: 09/07/2016 8:20pm Was paged by the nurse to inform me that patient is refusing to keep his IV fluids running. Went to assess the patient. Patient states that he wants the IV fluids to be discontinued. Checked his labs. Patient doesn't have acute kidney injury (creatinine is normal ); blood sugar is trending down. Patient is on diabetic diet and he is drinking well. There is no indication of IV fluids at this time. Hence will discontinue the IV fluids for tonight. If needed, it can be resumed tomorrow. Physical Examination Vital Signs: Vital Signs Temperature 98.8 F 09/07/16 17:00 Pulse Rate 100 H 09/07/16 17:00 Respiratory Rate 18 09/07/16 17:00 Blood Pressure 108/60 09/07/16 17:00 O2 Sat by Pulse Oximetry (%) 97 09/07/16 09:00 Labs: CBC, BMP 09/07/16 05:35 09/07/16 05:35 Visit type - Emergency Visit Emergency Visit: Yes ED Registration Date: 09/07/16 Care time: The patient presented to the Emergency Department on the above date and was hospitalized for further evaluation of their emergent condition. - New Patient This patient is new to me today: No - Critical Care Critical Care patient: No
[2016-09-07] MEDS ORDERED: ATORVASTATIN CA 20 MG TABLET (FP) PO SCH (22:00)
[2016-09-08] MEDS: INSULIN SLIDING SCALE (NOVOLOG) 1 VIAL SQ SCH ×2 (06:16→11:51)
[2016-09-08 08:42] VITALS: BP 114/66; PULSE 61; TEMP 98
--- NOTE | 2016-09-08 09:05 | PN ---
Progress Note (short form) - Note Progress Note: No complaints Reverted to NSR. Chest clear. No edema. Echo reviewed. Rec: Ok to discharge on eliquis 5mg BID probably for 4 weeks if he remains in sinus. Plan to Holter as outpatient. Add Toprol Xl 25mg BID to his home regimen. F/u w me 1-2 weeks.
[2016-09-08] MEDS: APIXABAN 5 MG TABLET PO SCH (09:28)
[2016-09-08] MEDS: METOPROLOL SUCCINATE 25 MG TAB.SR.24H (FP) PO SCH (09:28)
[2016-09-08] MEDS: VALSARTAN 40 MG TABLET (FP) PO SCH (09:28)
[2016-09-08] MEDS ORDERED: ENOXAPARIN NA (PORCINE) 40 MG/0.4 ML DISP.SYRIN SQ SCH (10:00)
--- NOTE | 2016-09-08 10:53 | DS ---
Physical Exam: SUBJECTIVE: Patient seen and examined Pt is comfortable no s/s of distress Deneis chest pain, palpitation, shortness of breath, dizziness, n/v. OBJECTIVE: Vital Signs Period Temp Pulse Resp BP Sys/Chapa Pulse Ox Last 24 Hr 97.5 F-98.8 F 61-110 18-20 99-128/60-94 96-98 PHYSICAL EXAM GENERAL: The patient is awake, alert, and fully oriented, in no acute distress. HEAD: Normal with no signs of trauma. ENT: Ears normal, nares patent, oropharynx clear without exudates, moist mucous membranes. NECK: Trachea midline, full range of motion, supple. LUNGS: Breath sounds equal, clear to auscultation bilaterally, no wheezes, no crackles, no accessory muscle use. HEART: regular rate and rhythm, S1, S2 without murmur, rub or gallop. ABDOMEN: Soft, obese, nontender, nondistended, normoactive bowel sounds, no guarding, no rebound, no hepatosplenomegaly, no masses. EXTREMITIES: 2+ pulses, warm, well-perfused, no edema. NEUROLOGICAL: normal speech, gait not observed. PSYCH: Normal mood, normal affect. SKIN: Warm, dry, normal turgor, no rashes or lesions noted LABS Laboratory Results - last 24 hr 09/07/16 09/07/16 09/07/16 11:03 14:30 17:40 POC Glucometer 229 233 Creatine Kinase 74 Troponin I < 0.02 09/07/16 09/08/16 21:25 06:09 POC Glucometer 179 167 Creatine Kinase Troponin I HOSPITAL COURSE: Date of Admission:09/07/16 Patient is a 56 year old male presented with the chief complaints of palpitations. According to the patient, he was reading something after a heavy meal and a chocolate, when he started having palpitations at around 11:30pm yesterday evening. He felt his heart rate would slow down and would get faster. Patient started getting nervous, anxious and called 911 immediately. He had similar episode 8 years ago but after 30 hours, he returned to sinus. Since then he has been on Aspirin and Cardizem 120 [address] Patient saw Dr. Crespo last January, had detailed cardio workup done and everything was normal. Denies chest pain, sob, cough, headache, dizziness, loc, tingling, numbness, abdominal pain, nausea and vomiting. Patient mentions that he has had multiple shoulder surgery and the last one he had was in 2014, was told his HbA1c in 6.5. Since then he started exercising, eating healthy and came down from 335lbs--> 270lbs in over a year. But never had repeat HbA1c again and doesn 't know if he has Diabetes Mellitus. ER course was notable for: (1) Afebrile, HR-max 137 bpm, leukocytosis (12.9); [id number]. (2) EKGs-Atrial fibrillation with rapid ventricular response with premature ventricular or aberrantly conducted complexes, Nonspecific ST abnormality. (3) Cardizem 30mg IV push; Cardizem 25mg IV, cardizem 30mg PO; , Cardizem 25mg IV, Ativan 1mg, Enoxaparin 120mg sq, 4 Units 56 year old male with pmh of Proximal Afib from 8 years ago, HTN, HPLD presents to the ED with complaint of Palpitation. Pt was found to be in AFIB with RVR. In ED HR was 130's only reduced after cardizem IV and PO. Pt denies any symptoms during the admission. CHADSVAC score 3. Pt was started anticoagulation with apixibn 5mg po bid. For better rate control Start Toprol XL 25mg PO BID was also started. Pt continue Cardizem 120mg PO qd. 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 All troponins were negative and echocardiogram showed no wall motion abnormality, normal LV size, function, normal EF. Pt eventually Pt was diagnosed with Type 2 diabetes. BS 371 on admission and 235 this am and remained consistently above 200. Hga1c is 10.2. Pt was placed on Novolog sliding scale. Pt will start metformin 500 mg PO BID on discharge. Pt may need to add a second PO agent as outpatient. Nutrition consult and Diabetes education done. Pt has Class 2 obesity. BMI 37.7, 126.1 kg, Weight loss counseling done. Pt will need to be on an exercise program and possible nurse consultant follow up as outpatient. Pt has Hyperlipidemia. LDL 147, HDL 41, LDL: goal is 70. Pt was Started on atorvastin 20mg Po qhs. Pt has HTN, BP controlled , Continue Diovan. Follow up with locator specialist within 1-2 weeks Follow up with PCP within 1 week. Date of Discharge: 09/08/16 Minutes to complete discharge: 45 Discharge Summary Reason For Visit: ATRIAL FIBRILLATION W/RVR HYPERGLYCEMIA Current Active Problems Hyperglycemia (Chronic) Condition: Stable - Instructions Diet, Activity, Other Instructions: Discharge Home Start cardiac/diabetic diet Resume Home activity Resume home medications Start Eliquis 5mg PO BID Start Toprol XL 25mg PO BID Start Metformin 500mg PO BID Start Atorvastatin 20mg PO QHS Follow up with your PCP within 1 week Follow up with Watch And Clock Repairer Dr Crespo within 1-2 weeks Your HgbA1C was 10.2 and your blood sugar has been consistantly between 200-400 during this admission. Therefore it is important for you to be on blood sugar medications We will send you home with a glucometer and strips to check your blood sugar in the morning before breakfast, before each meal and at night before you sleep. Keep a record of the blood sugar and present it to your primary care physician on your next visit. Further adjustment may be necessary to get your blood sugar under control Referrals: Yogesh Crespo MD [Staff Physician] - 1 Week Disposition: HOME - Home Medications Comprehensive Discharge Medication List: Ambulatory Orders Valsartan 40 mg PO DAILY 11/15/14 Diltiazem Cd [Cardizem Cd -] 120 mg PO DAILY #30 cap.cd.24h 11/23/14 Apixaban [Eliquis -] 5 mg PO BID #60 tablet 09/08/16 Atorvastatin Ca [Lipitor] 20 mg PO HS #30 tablet 09/08/16 Metformin HCl 500 mg PO BID #60 tablet 09/08/16 Metoprolol Succinate [Toprol XL -] 25 mg PO BID #60 tab MDD 2 09/08/16 This patient is new to me today: No Emergency Visit: Yes ED Registration Date: 09/07/16 Care time: The patient presented to the Emergency Department on the above date and was hospitalized for further evaluation of their emergent condition. Critical Care patient: No - Discharge Referral Referred to [facility] Med P.C.: No
--- NOTE | 2016-09-08 11:54 | PN ---
Teaching Attending Note Name of Resident: James Han ATTENDING PHYSICIAN STATEMENT I saw and evaluated the patient. I reviewed the resident's note and discussed the case with the resident. I agree with the resident's findings and plan as documented. SUBJECTIVE:currently asymptomatic. denies CP, SOb, fever, chills, N/V/C/D, or palpitations OBJECTIVE: Last Vital Signs Temp Pulse Resp BP Pulse Ox 98 F 61 18 114/66 98 09/08/16 08:41 09/08/16 08:41 09/08/16 08:41 09/08/16 08:41 09/08/16 08:00 General NAD CV S1 S2 RRR no murmur/rub/gallop ASSESSMENT AND PLAN: 56yo M with PMH PAF, HTN and DM presented to the ER and was admitted for further evaluation of their emergent condition 1. Afib with RVR- converted to NSR in the evening. no repeated episodes of palpitations. controlled on toprol and cardizem. follow up with cardiology for possible holter monitor. on elquis, 2. New onset DM- A1c 10.1. will start metformin 500mg BID, lifestyle changes. instructed to check bgm monitoring and bring log with him to pmd office. will likely require further titration of diabetic medications. repeat A1c in 3 months 3. Obesity- BMI 37.7. counseled on importance of weight loss. lifestyle changes and exercise. goal to loose 1 lb/week 4. DVT ppx- eliquis 5. d/c home
== END 2016-09-08 12:56 | disposition home or self-care (01) | DRG 310 ==
LOC: JER 00:20 → JERBED 02:32 → UNDOADMIN 02:46 → JERBED 02:46 → J4W 04:44
PROVIDERS: ADMIT Internal Medicine; ATTEND Internal Medicine
DX: I48.0 Paroxysmal atrial fibrillation (principal); I10 Essential (primary) hypertension; E78.5 Hyperlipidemia, unspecified; J45.909 Unspecified asthma, uncomplicated; Z87.891 Personal history of nicotine dependence; E66.01 Morbid (severe) obesity due to excess calories; Z68.37 Body mass index [BMI] 37.0-37.9, adult; Z71.3 Dietary counseling and surveillance; Z96.652 Presence of left artificial knee joint; I25.10 Atherosclerotic heart disease of native coronary artery without angina pectoris; E11.65 Type 2 diabetes mellitus with hyperglycemia; Z79.84 Long term (current) use of oral hypoglycemic drugs
CPT/HCPCS: 36415; 71010-TC; 80053; 80061; 82009; 82550; 83036; 83721; 83735; 84100; 84443; 84484; 85025; 85610; 93005; 93010; 93306-TC; 99285-25; G0378

== ENCOUNTER 2020-05-05 15:19 | Inpatient (IN) | payer BC, OTHER ==
[2020-05-05 16:48] LABS: BASO % 0.2 % (0-2.0); EOS % 0.4 % (0-4.5); HEMATOCRIT 47.6 % (35.4-49); HEMOGLOBIN 16.4 GM/dL (11.7-16.9); LYMPH % 19.8 % (8-40); MCH 29.3 pg (25.7-33.7); MCHC 34.5 g/dl (32.0-35.9); MEAN PLT VOLUME 8.9 fl (7.5-11.1); MONO % 5.5 % (3.8-10.2); NEUT % 74.1 % (42.8-82.8); PLATELET COUNT 237 K/MM3 (134-434); WHITE BLOOD COUNT 8.9 K/mm3 (4.0-10.0)
[2020-05-05 17:08] LABS: CHLORIDE 106 mmol/L (98-107); POTASSIUM 4.3 mmol/L (3.5-5.1); SODIUM 136 mmol/L (136-145)
[2020-05-05 17:09] LABS: GLUCOSE,RANDOM 191 mg/dL (74-106)
[2020-05-05 17:11] LABS: ANION GAP 8 MMOL/L (8-16); BLOOD UREA NITROGEN 15.1 mg/dL (7-18); CO2 22 mmol/L (21-32); MAGNESIUM 2.1 mg/dL (1.8-2.4)
[2020-05-05 17:14] LABS: CREATININE 0.8 mg/dL (0.55-1.3); SGOT/AST 15 U/L (15-37); SGPT/ALT 34 U/L (13-61)
[2020-05-05 17:15] LABS: BILIRUBIN,TOTAL 0.5 mg/dL (0.2-1); TOT PROT 7.5 g/dl (6.4-8.2)
[2020-05-05 17:16] LABS: ALK PHOS 82 U/L (45-117)
[2020-05-05] MEDS ORDERED: dilTIAZem HCL 50 MG/10 ML - 10 ML VIAL IVPUSH ONE (17:29)
[2020-05-05] MEDS ORDERED: dilTIAZem HCL 125 MG/25 ML - 25 ML VIAL ONE (17:44)
[2020-05-05 18:03] LABS: INR 0.95 (0.83-1.09); PROTHROMBIN TIME (PATIENT) 11.5 SEC (9.7-13.0)
[2020-05-05] MEDS ORDERED: dilTIAZem HCL 30 MG TABLET PO ONE (18:20)
[2020-05-05] MEDS ORDERED: dilTIAZem HCL 30 MG TABLET ONE (18:47)
[2020-05-05] MEDS ORDERED: metFORMIN HCL 500 MG TABLET (FP) PO SCH (22:00)
[2020-05-05] MEDS ORDERED: LORazepam 2 MG TABLET PO ONE (22:11)
[2020-05-05] MEDS ORDERED: APIXABAN 5 MG TABLET ONE (22:34)
[2020-05-05] MEDS ORDERED: LORazepam 1 MG TABLET ONE (22:35)
[2020-05-05] MEDS: APIXABAN 5 MG TABLET PO SCH (22:42)
[2020-05-05] MEDS: INSULIN SLIDING SCALE (NOVOLOG) 1 VIAL SQ SCH (22:42)
[2020-05-06 00:37] LABS: URINE APPEARANCE CLEAR; URINE BILIRUBIN NEGATIVE (NEGATIVE); URINE COLOR YELLOW; URINE GLUCOSE (UA) NEGATIVE (NEGATIVE); URINE KETONE NEGATIVE (NEGATIVE); URINE LEUK ESTERASE NEGATIVE (NEGATIVE); URINE NITRITE NEGATIVE (NEGATIVE); URINE PROTEIN NEGATIVE (NEGATIVE); URINE UROBILINOGEN 0.2 mg/dL (0.2-1.0)
[2020-05-06 06:25] LABS: HEMATOCRIT 47.5 % (35.4-49); HEMOGLOBIN 15.9 GM/dL (11.7-16.9); MCH 28.5 pg (25.7-33.7); MCHC 33.4 g/dl (32.0-35.9); MEAN CELL VOLUME 85.4 fl (80-96); MEAN PLT VOLUME 8.9 fl (7.5-11.1); PLATELET COUNT 224 K/MM3 (134-434); RBC 5.56 M/mm3 (4.00-5.60); RDW 14.1 % (11.9-15.9); WHITE BLOOD COUNT 12.2 K/mm3 (4.0-10.0)
[2020-05-06 06:41] LABS: POTASSIUM 3.8 mmol/L (3.5-5.1)
[2020-05-06 06:42] LABS: BLOOD UREA NITROGEN 16.7 mg/dL (7-18)
[2020-05-06 06:44] LABS: MAGNESIUM 2.1 mg/dL (1.8-2.4)
[2020-05-06 06:47] LABS: CHOLESTEROL 209 mg/dL (50-200); CREATININE 0.7 mg/dL (0.55-1.3); TRIGLYCERIDES 256 mg/dL (0-150)
[2020-05-06 06:48] LABS: LDL CHOLESTEROL (ONLY SJRH) 142 mg/dL (5-100)
[2020-05-06 06:49] LABS: HDL CHOLESTEROL 42 mg/dL (40-60)
[2020-05-06] MEDS: INSULIN SLIDING SCALE (NOVOLOG) 1 VIAL SQ SCH ×4 (08:36→21:14)
[2020-05-06] MEDS ORDERED: PT OWN MED DRAWER 7, Y5N ONE (09:40)
[2020-05-06] MEDS ORDERED: APIXABAN 5 MG TABLET ONE (09:40)
[2020-05-06] MEDS ORDERED: VALSARTAN 80 MG TABLET ONE (09:40)
[2020-05-06] MEDS: VALSARTAN 160 MG TABLET PO SCH (10:21)
[2020-05-06] MEDS: APIXABAN 5 MG TABLET PO SCH ×2 (10:21→21:19)
[2020-05-06 11:47] LABS: ANISOCYTOSIS 0; MACROCYTOSIS 0; PLATELET ESTIMATE NORMAL
[2020-05-06 16:50] VITALS: BMI 37.7
[2020-05-06] MEDS: MELATONIN 5 MG TABLETS PO SCH ×2 (21:19→22:38)
[2020-05-07] MEDS: INSULIN SLIDING SCALE (NOVOLOG) 1 VIAL SQ SCH ×4 (06:27→22:47)
[2020-05-07 06:46] LABS: HEMATOCRIT 47.8 % (35.4-49); HEMOGLOBIN 15.9 GM/dL (11.7-16.9); MCH 28.7 pg (25.7-33.7); MCHC 33.3 g/dl (32.0-35.9); MEAN CELL VOLUME 86.3 fl (80-96); MEAN PLT VOLUME 8.9 fl (7.5-11.1); PLATELET COUNT 231 K/MM3 (134-434); RBC 5.54 M/mm3 (4.00-5.60); RDW 14.2 % (11.9-15.9); WHITE BLOOD COUNT 11.3 K/mm3 (4.0-10.0)
[2020-05-07 07:00] LABS: POTASSIUM 3.6 mmol/L (3.5-5.1)
[2020-05-07 07:04] LABS: BLOOD UREA NITROGEN 19.2 mg/dL (7-18); CALCIUM 8.7 mg/dL (8.5-10.1)
[2020-05-07 07:08] LABS: CREATININE 0.7 mg/dL (0.55-1.3)
[2020-05-07] MEDS: APIXABAN 5 MG TABLET PO SCH ×2 (09:35→22:42)
[2020-05-07] MEDS ORDERED: metoPROLOL SUCCINATE 25 MG TAB.SR.24H (FP) PO SCH ×2 (10:00→20:00)
[2020-05-07] MEDS: VALSARTAN 160 MG TABLET PO SCH (10:29)
[2020-05-07] MEDS: MELATONIN 5 MG TABLETS PO SCH (22:43)
[2020-05-08] MEDS: INSULIN SLIDING SCALE (NOVOLOG) 1 VIAL SQ SCH ×4 (06:04→21:30)
[2020-05-08 07:38] LABS: HEMOGLOBIN 15.7 GM/dL (11.7-16.9); MCH 28.9 pg (25.7-33.7); MCHC 34.1 g/dl (32.0-35.9); MEAN CELL VOLUME 84.7 fl (80-96); PLATELET COUNT 227 K/MM3 (134-434); RBC 5.44 M/mm3 (4.00-5.60); RDW 14.1 % (11.9-15.9); WHITE BLOOD COUNT 10.4 K/mm3 (4.0-10.0)
[2020-05-08 07:48] LABS: POTASSIUM 3.5 mmol/L (3.5-5.1)
[2020-05-08 07:54] LABS: CALCIUM 8.6 mg/dL (8.5-10.1)
[2020-05-08 07:57] LABS: CREATININE 0.7 mg/dL (0.55-1.3)
[2020-05-08] MEDS: APIXABAN 5 MG TABLET PO SCH ×2 (10:06→21:30)
[2020-05-08] MEDS: MELATONIN 5 MG TABLETS PO SCH (21:30)
[2020-05-09] MEDS: INSULIN SLIDING SCALE (NOVOLOG) 1 VIAL SQ SCH ×2 (06:34→12:00)
[2020-05-09] MEDS: APIXABAN 5 MG TABLET PO SCH (09:08)
[2020-05-09 13:56] VITALS: BP 127/94; PULSE 71; TEMP 98
== END 2020-05-09 14:59 | disposition home or self-care (01) | DRG 310 ==
LOC: JER 15:19 → JERBED 21:09 → J4S 05-06 15:52 → OBSVTOIN 05-08 16:58
PROVIDERS: ADMIT Hospitalist; ATTEND Internal Medicine
DX: I48.0 Paroxysmal atrial fibrillation (principal); I10 Essential (primary) hypertension; I77.819 Aortic ectasia, unspecified site; E11.9 Type 2 diabetes mellitus without complications; E66.9 Obesity, unspecified; Z68.37 Body mass index [BMI] 37.0-37.9, adult
CPT/HCPCS: 36415; 71046-TC-FY; 80048; 80053; 80061; 81003; 82550; 82962; 83036; 83721; 83735; 84100; 84443; 84484; 85025; 85027; 85610; 93005; 93010; 93306-TC; 99285-25; C9803; G0378; U0003

== ENCOUNTER 2021-09-02 15:41 | Observation (INO) | payer BC, OTHER ==
[2021-09-02 15:47] VITALS: BMI 36.2
[2021-09-02] MEDS ORDERED: SODIUM CHLORIDE 0.9% 500 ML INFUS.BAG IV ONE (16:05)
[2021-09-02] MEDS ORDERED: METOPROLOL TARTRATE 5 MG/5 ML VIAL IVPUSH ONE (16:05)
[2021-09-02] MEDS ORDERED: METOPROLOL TARTRATE 5 MG/5 ML VIAL ONE (16:07)
[2021-09-02] MEDS ORDERED: ADENOSINE 6 MG/2 ML VIAL IVPUSH ONE ×2 (16:26→16:29)
[2021-09-02] MEDS ORDERED: dilTIAZem HCL 50 MG/10 ML - 10 ML VIAL IVPUSH ONE (16:43)
[2021-09-02 16:44] LABS: BASO % 0.3 % (0-2.0); EOS % 0.6 % (0-4.5); HEMATOCRIT 50.7 % (35.4-49); HEMOGLOBIN 17.2 GM/dL (11.7-16.9); LYMPH % 22.8 % (8-40); MCH 27.8 pg (25.7-33.7); MCHC 33.9 g/dl (32.0-35.9); MEAN PLT VOLUME 8.9 fl (7.5-11.1); MONO % 5.6 % (3.8-10.2); NEUT % 70.7 % (42.8-82.8); PLATELET COUNT 302 10^3/uL (134-434); RBC 6.19 M/mm3 (4.00-5.60); WHITE BLOOD COUNT 14.1 K/mm3 (4.0-10.0)
[2021-09-02] MEDS ORDERED: dilTIAZem HCL 125 MG/25 ML - 25 ML VIAL ONE (16:48)
[2021-09-02 17:20] LABS: BLOOD UREA NITROGEN 13.5 mg/dL (7-18); CALCIUM 9.5 mg/dL (8.5-10.1)
[2021-09-02 17:23] LABS: CREATININE 0.8 mg/dL (0.55-1.3)
[2021-09-02 17:26] LABS: BILIRUBIN,TOTAL 0.7 mg/dL (0.2-1); TOT PROT 7.6 g/dl (6.4-8.2)
[2021-09-02] MEDS ORDERED: dilTIAZem HCL 30 MG TABLET PO ONE (17:48)
[2021-09-02] MEDS ORDERED: dilTIAZem HCL 30 MG TABLET ONE (18:44)
[2021-09-02] MEDS ORDERED: dilTIAZem HCL 50 MG/10 ML - 10 ML VIAL IVPUSH PRN (18:47)
[2021-09-02] MEDS ORDERED: APIXABAN 5 MG TABLET ONE (21:57)
[2021-09-02] MEDS ORDERED: APIXABAN 5 MG TABLET PO SCH (22:00)
[2021-09-02] MEDS: APIXABAN 5 MG TABLET PO SCH (22:21)
[2021-09-02] MEDS: INSULIN SLIDING SCALE (NOVOLOG) 1 VIAL SQ SCH (22:21)
[2021-09-02 22:31] LABS: PH,URINE 6.5 (5.0-8.0); URINE APPEARANCE CLEAR; URINE BILIRUBIN NEGATIVE (NEGATIVE); URINE COLOR YELLOW; URINE GLUCOSE (UA) NEGATIVE (NEGATIVE); URINE KETONE NEGATIVE (NEGATIVE); URINE LEUK ESTERASE NEGATIVE (NEGATIVE); URINE NITRITE NEGATIVE (NEGATIVE); URINE PROTEIN NEGATIVE (NEGATIVE); URINE UROBILINOGEN 0.2 mg/dL (0.2-1.0)
[2021-09-03] MEDS: INSULIN SLIDING SCALE (NOVOLOG) 1 VIAL SQ SCH ×4 (07:15→21:02)
[2021-09-03 08:12] LABS: BASO % 0.2 % (0-2.0); EOS % 1.2 % (0-4.5); HEMATOCRIT 46.2 % (35.4-49); HEMOGLOBIN 16.2 GM/dL (11.7-16.9); LYMPH % 30.4 % (8-40); MCH 28.6 pg (25.7-33.7); MEAN CELL VOLUME 81.5 fl (80-96); MEAN PLT VOLUME 8.3 fl (7.5-11.1); MONO % 6.9 % (3.8-10.2); NEUT % 61.3 % (42.8-82.8); PLATELET COUNT 242 10^3/uL (134-434); RBC 5.67 M/mm3 (4.00-5.60); RDW 15.3 % (11.9-15.9); WHITE BLOOD COUNT 10.8 K/mm3 (4.0-10.0)
[2021-09-03 08:33] LABS: CALCIUM 8.6 mg/dL (8.5-10.1)
[2021-09-03 08:34] LABS: ALBUMIN 3.3 g/dl (3.4-5.0); BLOOD UREA NITROGEN 13.2 mg/dL (7-18); MAGNESIUM 2.2 mg/dL (1.8-2.4)
[2021-09-03 08:36] LABS: CREATININE 0.6 mg/dL (0.55-1.3); PHOSPHOROUS 3.5 mg/dL (2.5-4.9)
[2021-09-03 08:38] LABS: BILIRUBIN,TOTAL 0.6 mg/dL (0.2-1); TOT PROT 6.5 g/dl (6.4-8.2)
[2021-09-03] MEDS: APIXABAN 5 MG TABLET PO SCH ×2 (11:01→21:01)
[2021-09-03] MEDS ORDERED: ALPRAZolam 0.25 MG TABLET PO ONE (13:50)
[2021-09-04] MEDS: INSULIN SLIDING SCALE (NOVOLOG) 1 VIAL SQ SCH ×4 (06:08→21:29)
[2021-09-04 07:52] LABS: BLOOD UREA NITROGEN 14.6 mg/dL (7-18); CALCIUM 8.3 mg/dL (8.5-10.1); MAGNESIUM 2.1 mg/dL (1.8-2.4)
[2021-09-04 07:56] LABS: CREATININE 0.7 mg/dL (0.55-1.3)
[2021-09-04 08:18] LABS: BASO % 0.3 % (0-2.0); EOS % 1.6 % (0-4.5); HEMATOCRIT 45.5 % (35.4-49); HEMOGLOBIN 15.7 GM/dL (11.7-16.9); LYMPH % 35.2 % (8-40); MCH 28.3 pg (25.7-33.7); MCHC 34.6 g/dl (32.0-35.9); MEAN CELL VOLUME 81.9 fl (80-96); MEAN PLT VOLUME 8.9 fl (7.5-11.1); NEUT % 55.9 % (42.8-82.8); PLATELET COUNT 247 10^3/uL (134-434); RBC 5.56 M/mm3 (4.00-5.60); RDW 14.9 % (11.9-15.9); WHITE BLOOD COUNT 7.7 K/mm3 (4.0-10.0)
[2021-09-04] MEDS: APIXABAN 5 MG TABLET PO SCH ×2 (09:21→21:29)
[2021-09-04] MEDS: AMIODARONE HCL 200 MG TABLET PO SCH ×2 (13:04→21:29)
[2021-09-05] MEDS: INSULIN SLIDING SCALE (NOVOLOG) 1 VIAL SQ SCH ×4 (06:15→21:03)
[2021-09-05 07:52] LABS: HEMATOCRIT 44.5 % (35.4-49); HEMOGLOBIN 15.5 GM/dL (11.7-16.9); MCH 28.6 pg (25.7-33.7); MCHC 34.9 g/dl (32.0-35.9); MEAN CELL VOLUME 81.8 fl (80-96); MEAN PLT VOLUME 8.4 fl (7.5-11.1); PLATELET COUNT 225 10^3/uL (134-434); RBC 5.44 M/mm3 (4.00-5.60); RDW 15.2 % (11.9-15.9); WHITE BLOOD COUNT 8.4 K/mm3 (4.0-10.0)
[2021-09-05 08:14] LABS: BLOOD UREA NITROGEN 14.8 mg/dL (7-18); CALCIUM 8.6 mg/dL (8.5-10.1)
[2021-09-05 08:17] LABS: CREATININE 0.7 mg/dL (0.55-1.3)
[2021-09-05] MEDS: APIXABAN 5 MG TABLET PO SCH ×2 (09:44→21:03)
[2021-09-05] MEDS: AMIODARONE HCL 200 MG TABLET PO SCH ×2 (09:45→21:02)
[2021-09-06] MEDS: INSULIN SLIDING SCALE (NOVOLOG) 1 VIAL SQ SCH ×2 (06:17→11:26)
[2021-09-06 08:36] LABS: HEMATOCRIT 44.7 % (35.4-49); HEMOGLOBIN 15.1 GM/dL (11.7-16.9); MCH 28.2 pg (25.7-33.7); MCHC 33.9 g/dl (32.0-35.9); MEAN CELL VOLUME 83.1 fl (80-96); MEAN PLT VOLUME 8.7 fl (7.5-11.1); PLATELET COUNT 257 10^3/uL (134-434); RBC 5.38 M/mm3 (4.00-5.60); WHITE BLOOD COUNT 9.8 K/mm3 (4.0-10.0)
[2021-09-06 08:56] LABS: CALCIUM 8.8 mg/dL (8.5-10.1)
[2021-09-06 09:00] LABS: CREATININE 0.7 mg/dL (0.55-1.3); MAGNESIUM 2.1 mg/dL (1.8-2.4); PHOSPHOROUS 4.4 mg/dL (2.5-4.9)
[2021-09-06] MEDS: AMIODARONE HCL 200 MG TABLET PO SCH (09:44)
[2021-09-06] MEDS: APIXABAN 5 MG TABLET PO SCH (09:45)
[2021-09-06 14:35] VITALS: BP 136/73; PULSE 73; TEMP 97.8
== END 2021-09-06 18:45 | disposition home or self-care (01) ==
LOC: JER 15:41 → JERBED 18:50 → J4S 09-03 09:37
PROVIDERS: ADMIT Hospitalist; ATTEND Internal Medicine
PROC: 3E033GC Introduction of Other Therapeutic Substance into Peripheral Vein, Percutaneous Approach (ICD-10-PCS; principal; 2021-09-02)
PROC: 3E0337Z Introduction of Electrolytic and Water Balance Substance into Peripheral Vein, Percutaneous Approach (ICD-10-PCS; 2021-09-02)
DX: I25.10 Atherosclerotic heart disease of native coronary artery without angina pectoris (principal); I11.9 Hypertensive heart disease without heart failure; I48.92 Unspecified atrial flutter; Z79.01 Long term (current) use of anticoagulants; E11.9 Type 2 diabetes mellitus without complications; E78.5 Hyperlipidemia, unspecified; F41.9 Anxiety disorder, unspecified; F41.0 Panic disorder [episodic paroxysmal anxiety]; M19.90 Unspecified osteoarthritis, unspecified site; E66.9 Obesity, unspecified; Z68.36 Body mass index [BMI] 36.0-36.9, adult
CPT/HCPCS: 36415; 71045-TC-FY; 80048; 80053; 81003; 82962; 83735; 84100; 84443; 84484; 85025; 85027; 87086; 93005; 93010; 99285-25; C9803-CS; G0378; U0003; U0005